=== PATIENT | female | born 1990 | race Two or more races ===

== ENCOUNTER 2022-03-27 10:49 | Inpatient (IN) | payer OTHER ==
[~2022-03-27] VITALS: Ht 157.5 cm; Wt 3.2 kg
[2022-03-27] MEDS ORDERED: PRENATABS RX T1 EACH PO (10:59)
[2022-03-30] MEDS ORDERED: IBUPROFEN800 MG PO (07:56)
== END 2022-03-30 13:23 | disposition home or self-care (01) | DRG 788 ==
LOC: OB/GYN 10:49 → LDR 10:49 → OB/GYN 19:47
PROVIDERS: ADMIT Specialist; ATTEND Specialist
PROC: 4A1HXCZ Monitoring of Products of Conception, Cardiac Rate, External Approach (ICD-10-PCS; 2022-03-27)
PROC: 10D00Z1 Extraction of Products of Conception, Low, Open Approach (ICD-10-PCS; principal; 2022-03-27 17:30)
DX: O33.8 Maternal care for disproportion of other origin (principal); Z3A.38 38 weeks gestation of pregnancy; Z37.0 Single live birth; Z20.822 Contact with and (suspected) exposure to COVID-19